=== PATIENT | female | born 1995 | race Caucasian/White ===

== ENCOUNTER 2016-07-19 12:23 | Emergency (ER) | payer MEDICAID ==
--- NOTE | 2016-07-19 12:41 | Emergency Department Record ---
History of Present Illness - General Chief complaint: ENT Stated complaint: SOMETHING WRONG WITH THROAT Time Seen by Provider: 07/19/16 12:32 Source: Patient Mode of Arrival: Ambulatory Limitations: No limitations - History of Present Illness Initial comments: 20 yo female presents with a fullness or FB sensation in her throat for a few months (started in the summer). No fevers or chills. No voice changes, No visible masses. No choking or gagging. No history or trauma or prior surgery. She initially noted the discomfort with turning. The feeling or a FB or mass has persisted since then. She just got insurance so this has not been evaluated to this point. MD complaint: Sore throat Onset/Timin -: Month(s) Location: Throat Severity: Mild Severity scale (1-10): 4 Quality: Other Consistency: Intermittent Improves with: None Worsens with: Swallowing Associated Symptoms: Other - Related Data Home Medications Medication Instructions Recorded Confirmed Last Taken Melatonin/Herbal Complex #184 3 mg PO QHS 07/19/16 07/19/16 Unknown [Melatonin + l-Theanine Softgel] Allergies Allergy/AdvReac Type Severity Reaction Status Date / Time No Known Drug Allergies Allergy Verified 07/19/16 12:31 Travel Screening - Travel/Exposure Within Last 30 Days Have you traveled within the last 30 days?: No Review of Systems Constitutional: Denies: Chills, Fever, Malaise, Night sweats, Weakness Eyes: Denies: Eye discharge, Eye pain, Photophobia, Vision change ENT: Reports: As per HPI, Throat pain. Denies: Congestion, Epistaxis Respiratory: Denies: Dyspnea, Hemoptysis, Stridor, Wheezes Cardiovascular: Denies: Chest pain, Palpitations, Syncope Endocrine: Denies: Fatigue Gastrointestinal: Denies: Abdominal pain, Diarrhea, Nausea, Vomiting Genitourinary: Denies: Dysuria Musculoskeletal: Denies: Arthralgia, Back pain, Joint swelling, Myalgia Skin: Denies: Bruising, Change in color Neurological: Denies: Headache Psychiatric: Denies: Anxiety Hematological/Lymphatic: Denies: Blood Clots, Easy bleeding, Easy bruising, Swollen glands Physical Exam - General General Appearance: Alert, Oriented x3, Cooperative, No acute distress Limitations: No limitations - Head Head exam: Normal inspection - Eye Eye exam: Normal appearance, PERRL. negative: Conjunctival injection, Periorbital swelling, Scleral icterus - ENT ENT exam: Normal exam, Mucous membranes moist Ear exam: Normal external inspection Nasal Exam: Normal inspection Mouth exam: Normal external inspection Teeth exam: Normal inspection Throat exam: Normal inspection. negative: Tonsillar erythema, Tonsillomegaly, Tonsillar exudate, R peritonsillar mass, L peritonsillar mass - Neck Neck exam: Normal inspection, Full ROM, Tenderness. negative: Lymphadenopathy, Meningismus, Thyromegaly - Respiratory Respiratory exam: Normal lung sounds bilaterally. negative: Accessory muscle use, Respiratory distress, Rhonchi, Stridor, Wheezes - Cardiovascular Cardiovascular Exam: Regular rate, Normal rhythm, Normal heart sounds - GI/Abdominal GI/Abdominal exam: Soft - Rectal Rectal exam: Deferred - exam: Deferred - Extremities Extremities exam: Normal inspection, Full ROM, Normal capillary refill. negative: Tenderness - Back Back exam: Reports: Normal inspection, Full ROM. Denies: Muscle spasm, Rash noted, Tenderness - Neurological Neurological exam: Alert, CN II-XII intact, Normal gait, Oriented X3, Reflexes normal - Psychiatric Psychiatric exam: Normal affect, Normal mood. negative: Agitated, Anxious - Skin Skin exam: Dry, Intact, Normal color, Warm Course Vital Signs 07/19/16 12:27 Temperature 98.3 F Pulse Rate 101 H Respiratory 20 Rate Blood Pressure 143/101 Pulse Ox 99 - Reevaluation(s) Reevaluation #1: The soft tissue of the neck is negative for acute process The CBC and BMP are negative The TSH is pending 07/19/16 13:16 Reevaluation #2: The TSH is in the normal range 07/19/16 13:42 Medical Decision Making - Lab Data Result diagrams: 07/19/16 12:48 07/19/16 12:48 Disposition Disposition: Discharge Clinical Impression: Odynophagia Disposition: Home, Self-Care Condition: (1) Good Instructions: Chronic Dysphagia (ED) Additional Instructions: Follow up with your doctor You may require further evaluation with an US of your Thyroid or a referral to and ENT or GI specialist for a possible scope of the area Return if worse, choking voice changes or any new concerns Forms: Patient Portal Access Time of Disposition: 13:42
[2016-07-19 12:56] LABS: BASO % 0.5 % (0-6); EOS % 2.3 % (0-6); GRAN % 57.1 % (47-80); HEMATOCRIT 41.9 % (35.0-47.0); HEMOGLOBIN 14.8 gm/dl (11.6-16.0); LYMPH % 29.2 % (16-45); MEAN CELL VOLUME 84.6 fl (81-97); MEAN CORPUSCULAR HEMOGLOBIN 29.9 pg (27-33); MEAN CORPUSCULAR HGB CONC 35.3 g/dl (32-36); MEAN PLATELET VOLUME 9.4 fl (7.4-10.4); MONO % 10.9 % (0-9); PLATELET COUNT 272 K/uL (130-400); RED BLOOD COUNT 4.95 M/uL (3.80-5.40); RED CELL DISTRIBUTION WIDTH 12.6 % (11.5-14.5); WHITE BLOOD COUNT W/O DIFF 5.6 K/uL (4.2-12.2)
[2016-07-19 13:07] LABS: ANION GAP 16.4 (7-16); BLOOD UREA NITROGEN 11 mg/dL (7-17); CARBON DIOXIDE 23.6 mmol/L (22-30); CREATININE 0.8 mg/dL (0.52-1.04); EST GLOMERULAR FILTRATION RATE > 60 ml/min; GLUCOSE,RANDOM 103 mg/dL (70-110)
[2016-07-19 13:38] LABS: THYROID STIMULATING HORMONE 1.47 uIU/ml (0.465-4.68)
== END 2016-07-19 13:53 | disposition home or self-care (01) ==
LOC: ER 12:23
DX: R13.10 Dysphagia, unspecified (principal)
CPT/HCPCS: 70360; 80048; 84443; 85025; 99283; 99284